=== PATIENT | male | born 1965 | race Caucasian/White ===

== ENCOUNTER 2020-09-16 21:54 | Emergency (ER) | payer SELFPAY ==
[~2020-09-16] VITALS: Ht 180.3 cm; Wt 88.0 kg
[2020-09-16 21:56] VITALS: BP 162/100
[2020-09-16] MEDS ORDERED: DIPH,PERTUSS(ACELL),TET VAC/PF 0.5 ML IM-VACC ONE (23:00)
[2020-09-16] MEDS ORDERED: LIDOCAINE-MPF 1%, 5ML INFIL ONE (23:00)
[2020-09-16] MEDS ORDERED: LIDOCAINE-MPF 1%, 5ML ONE ×2 (23:35→23:55)
== END 2020-09-17 00:42 | disposition home or self-care (01) ==
LOC: ED 09-17 00:20
DX: L02.414 Cutaneous abscess of left upper limb (principal); L03.114 Cellulitis of left upper limb; M79.632 Pain in left forearm; F17.210 Nicotine dependence, cigarettes, uncomplicated; Z72.9 Problem related to lifestyle, unspecified
CPT/HCPCS: 10060; 99406

== ENCOUNTER 2020-10-17 20:13 | Emergency (ER) | payer SELFPAY ==
[~2020-10-17] VITALS: Ht 182.9 cm; Wt 86.7 kg
[2020-10-17 20:39] VITALS: BP 188/94
--- NOTE | 2020-10-17 21:06 | NUR ---
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 Steady upon ambulation.
[2020-10-17] MEDS ORDERED: IBUPROFEN 200 MG TABLET PO ONE (22:00)
[2020-10-17] MEDS ORDERED: IBUPROFEN 200 MG TABLET ONE (22:03)
== END 2020-10-17 22:54 | disposition home or self-care (01) ==
LOC: ED 21:23
DX: S93.432A Sprain of tibiofibular ligament of left ankle, initial encounter (principal); X50.0XXA Overexertion from strenuous movement or load, initial encounter; Y93.89 Activity, other specified; Y92.89 Other specified places as the place of occurrence of the external cause; Y99.8 Other external cause status
CPT/HCPCS: 99283